=== PATIENT | male | born 1955 ===

== ENCOUNTER 2017-09-28 10:31 | Emergency (ER) | payer OTHER ==
[2017-09-28 10:32] VITALS: BMI 38.9
[2017-09-28 10:45] VITALS: RESP 18; O2SAT 97
[2017-09-28] MEDS ORDERED: Albuterol 0.083% Inhal Sol (2.5 mg/3 mL) UD IH STA (11:31)
[2017-09-28] MEDS ORDERED: Albuterol 0.083% Inhal Sol (2.5 mg/3 mL) UD ONE (11:35)
--- NOTE | 2017-09-28 12:23 | C.PDOC ---
History Of Present Illness 62 yo male come in for evaluation of body aches, nasal congestion, runny nose, dry cough gradually developed for past 2 days. Otherwise, pt denies high fever , chills, headache, visual changes, focal deficits, neck pain, drooling, dysphagia, dyspnea, CP, SOB, palpitation, wheezing, abd. pain, V/D, back pain, UTI sx. Ambulate to ED for evaluation, not in any apparent distress. Time Seen by Provider: 09/28/17 11:24 Chief Complaint (Nursing): Flu-like Symptoms History Per: Patient History/Exam Limitations: no limitations Onset/Duration Of Symptoms: Gradual (2 days) Current Symptoms Are (Timing): Still Present Past Medical History Reviewed: Historical Data, Nursing Documentation, Vital Signs Vital Signs: Last Vital Signs Temp 98.1 F 09/28/17 12:38 Pulse 78 09/28/17 12:38 Resp 18 09/28/17 12:38 BP 129/85 09/28/17 12:38 Pulse Ox 97 09/28/17 12:41 - Medical History PMH: Diabetes, HTN, Hyperlipidemia Surgical History: CABG (x2 (2013 at [facility] [place] - [facility] Procedures CLOSURE SKIN & SUBCUTANEOUS NEC (06/09/15) CORONAR ARTERIOGR-2 CATH (04/23/14) LEFT HEART CARDIAC CATH (04/23/14) LT HEART ANGIOCARDIOGRAM (04/23/14) Family History: States: No Known Family Hx - Social History Hx Tobacco Use: No Hx Alcohol Use: Yes Hx Substance Use: No Review Of Systems Except As Marked, All Systems Reviewed And Found Negative. Constitutional: Positive for: Other ((+) body aches). Negative for: Fever, Chills Eyes: Negative for: Vision Change ENT: Positive for: Nose Discharge (runny nose), Nose Congestion Cardiovascular: Negative for: Chest Pain, Palpitations Respiratory: Positive for: Cough (dry). Negative for: Shortness of Breath, Wheezing Gastrointestinal: Negative for: Vomiting, Abdominal Pain, Diarrhea Musculoskeletal: Negative for: Neck Pain, Back Pain Neurological: Negative for: Headache Physical Exam - Physical Exam Appears: Non-toxic, No Acute Distress Skin: Warm, Dry, No Rash Head: Atraumatic, Normacephalic Eye(s): bilateral: Normal Inspection, PERRL, EOMI Ear(s): Bilateral: Normal Nose: Normal Oral Mucosa: Moist Lips: Normal Appearing Throat: Normal, No Erythema, No Exudate, No Drooling Neck: Normal, Normal ROM, Supple Chest: Symmetrical, No Tenderness Cardiovascular: Rhythm Regular, No Murmur Respiratory: Normal Breath Sounds, No Rales, No Rhonchi, No Stridor, No Wheezing Gastrointestinal/Abdominal: Normal Exam, Soft, No Tenderness, No Guarding, No Rebound Extremity: Normal ROM, No Swelling Neurological/Psych: Oriented x3, Normal Speech, Normal Motor ED Course And Treatment O2 Sat by Pulse Oximetry: 97 (RA) Pulse Ox Interpretation: Normal - Radiology CXR: Interpreted by Me, Viewed By Me CXR Interpretation: Yes: Other ((-) acute inflitrate, COmpare with old study, no new changes.) Progress Note: On re-eval, pt is afebrile, hemodynamicaly stable. Non-toxic. Tolerate Po well in ED. PUlsEOx 97% RA. Neck: Supple, (-) JVD, (-) carotid bruits B/L. ENT: No acute findings. uvula midline, no edema. Lungs: CTA B/L, BS equal B/L. CVS: (+)S1S2, reg. Abd: benign. Neurologicaly intact. CXR review and appears imilar to previous study, no acute consolidation. Influenza A (-). Pt advised on course of ds. ref. to F/u with PMD In 2-3 days for re- eval. return if any new changes. Medical Decision Making Medical Decision Making: PLAN: * CXR * Influenza * Albuterol IH * Zithromax PO Disposition Counseled Patient/Family Regarding: Studies Performed, Diagnosis, Need For Followup, Rx Given - Disposition Referrals: Shelly Ricks MD [Medical Doctor] - Disposition: HOME/ ROUTINE Disposition Time: 12:25 Condition: STABLE Additional Instructions: ENCOURAGE FLUIDS TAKE MEDICATION PRESCRIBED FOLLOW UP WITH PMD IN 2-3 DAYS FOR RE-EVALUATION. RETURN TO ED IF ANY WORSENING OR NEW CHANGES. 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 - Scribe Statement The provider has reviewed the documentation as recorded by the Scribe Stella Mera All medical record entries made by the Leroyibjasmin were at my direction and personally dictated by me. I have reviewed the chart and agree that the record accurately reflects my personal performance of the history, physical exam, medical decision making, and the department course for this patient. I have also personally directed, reviewed, and agree with the discharge instructions and disposition.
--- NOTE | 2017-09-28 12:34 | RAD ---
HISTORY: Cough COMPARISON: Chest x-ray performed 04/23/14 TECHNIQUE: Chest PA and lateral FINDINGS: Examination limited by habitus. LUNGS: Mild pulmonary venous congestion. No focal consolidation. Mild biapical pleural thickening. Please note that chest x-ray has limited sensitivity for the detection of pulmonary masses. PLEURA: No significant pleural effusion identified. No definite pneumothorax . CARDIOVASCULAR: Median sternotomy wires with evidence of CABG. Heart size appears top normal. OSSEOUS STRUCTURES: Degenerative changes of the spine. VISUALIZED UPPER ABDOMEN: Unremarkable. OTHER FINDINGS: None. IMPRESSION: Mild pulmonary venous congestion. Mild biapical pleural thickening. Median sternotomy wires with evidence of CABG.
[2017-09-28 12:44] VITALS: BP 129/85; PULSE 78; TEMP 98.1
== END 2017-09-28 12:45 | disposition home or self-care (01) ==
LOC: C.ER 10:31
DX: J40 Bronchitis, not specified as acute or chronic (principal)

== ENCOUNTER 2018-08-28 20:34 | Emergency (ER) | payer OTHER ==
[2018-08-28 20:35] VITALS: BMI 38.9
[2018-08-28] MEDS ORDERED: Sodium Chloride 0.9% 1,000 ML IV ONE (21:02)
--- NOTE | 2018-08-28 21:07 | C.PDOC ---
History Of Present Illness 63 year old male presents to the ED for evaluation after he sustained a fall yesterday. Patient states he accidentally missed a step, fell and hit the back of his head and hurt his left shoulder. Patient states he lost consciousness, but is unsure of the duration. Today, patient reports he has a headache and feels dizziness. He denies any further episode of syncope, nausea, vomiting, extremity numbness/weakness. Time Seen by Provider: 08/28/18 20:57 Chief Complaint (Nursing): Abnormal Skin Integrity History Per: Patient History/Exam Limitations: no limitations Onset/Duration Of Symptoms: Hrs Current Symptoms Are (Timing): Still Present Location Of Injury: Left: Shoulder, Posterior: Head Quality Of Symptoms: Painful Additional History Per: Patient Past Medical History Reviewed: Historical Data, Nursing Documentation, Vital Signs Vital Signs: Last Vital Signs Temp 97.5 F L 08/28/18 20:46 Pulse 80 08/28/18 20:46 Resp 20 08/28/18 20:46 BP 164/92 H 08/28/18 20:46 Pulse Ox 96 08/28/18 20:46 - Medical History PMH: Diabetes, HTN, Hyperlipidemia Denies: Chronic Kidney Disease Surgical History: CABG (x2 (2013 at [facility] [place] - [facility] Procedures CLOSURE SKIN & SUBCUTANEOUS NEC (06/09/15) CORONAR ARTERIOGR-2 CATH (04/23/14) LEFT HEART CARDIAC CATH (04/23/14) LT HEART ANGIOCARDIOGRAM (04/23/14) Family History: States: Unknown Family Hx - Social History Hx Tobacco Use: No Hx Alcohol Use: Yes Hx Substance Use: No - Immunization History Hx Tetanus Toxoid Vaccination: No Hx Influenza Vaccination: No Hx Pneumococcal Vaccination: No Review Of Systems Gastrointestinal: Negative for: Nausea, Vomiting Musculoskeletal: Positive for: Shoulder Pain (left ) Skin: Positive for: Other (head injury ) Neurological: Positive for: Other (LOC ). Negative for: Weakness, Numbness Physical Exam - Physical Exam Appears: Non-toxic, No Acute Distress Skin: Normal Color, Warm, Dry Head: Abrasion (to occipital region of scalp ), No Other (active bleeding) Eye(s): bilateral: Normal Inspection Oral Mucosa: Moist Neck: Normal ROM, No Midline Cervical Tenderness, No Paracervical Tenderness, Supple Chest: Symmetrical, No Deformity, No Tenderness Cardiovascular: Rhythm Regular, No Murmur Respiratory: Normal Breath Sounds, No Rales, No Rhonchi, No Wheezing Gastrointestinal/Abdominal: Soft, No Tenderness, No Guarding, No Rebound Extremity: No Normal ROM (limited in left upper extremity secondary to pain ), Tenderness (to left shoulder ), Capillary Refill (less than 2 seconds), No Deformity, No Swelling, Other ( right upper extremity and bilateral lower extremities are unremarkable. no ecchymosis or laceration to extremities ) Neurological/Psych: Oriented x3, Normal Speech, Normal Cognition ED Course And Treatment ECG: Interpreted By Me, Viewed By Me ECG Rhythm: Sinus Rhythm Interpretation Of ECG: Normal sinus rhythm at rate 81bpm. Right axis deviation. Normal QRS, normal intervals, no ST elevations. Rate From EC O2 Sat by Pulse Oximetry: 96 (on RA) Pulse Ox Interpretation: Normal - Other Rad left shoulder XR X-Ray: Interpreted by Me Interpretation: no acute fracture or dislocation - CT Scan/US CT Head Other Rad Studies (CT/US): Read By Radiologist, Radiology Report Reviewed CT/US Interpretation: EXAM: CT Head without Intravenous Contrast. CLINICAL HISTORY: Fall/ laceration back of head. TECHNIQUE: Axial computed tomography images of the head/brain without intravenous contrast. 1148 mGy-cm. COMPARISON: None provided. FINDINGS: BRAIN. No acute intraparenchymal hemorrhage. No mass lesion. No CT evidence for acute territorial infarct. No midline shift or extra-axial collections. VENTRICLES: No hydrocephalus. ORBITS: The orbits are unremarkable. SINUSES AND MASTOIDS: The paranasal sinuses and mastoid air cells are clear. BONES: No fracture. SOFT TISSUES: Scalp contusion high left parietal lobe. IMPRESSION: 1. Scalp contusion high left parietal lobe. 2. No acute intracranial pathology. Medical Decision Making Medical Decision Making: Impression: 63 year old male with head injury and left shoulder pain s/o fall Plan: * bloodwork * CT Head * Left shoulder XR * EKG * reassess and disposition Progress: Bloodwork, CT Head, Left shoulder XR, and EKG ordered and reviewed. IV Fluids given. 21:11 EKG shows normal sinus rhythm at rate 81bpm. Right axis deviation. Normal QRS, normal intervals, no ST elevations. Patient in no distress throughout ED course. At time of discharge, ambulates without difficulty. Concussion instructions given. Scalp laceration is over 24 hours old is already starting to heal, no repair necessary. Disposition - Disposition Disposition: HOME/ ROUTINE Disposition Time: 23:08 Condition: STABLE Additional Instructions: SON FAJARDO, thank you for letting us take care of you today. Your provider was Nuvia Dawkins MD and you were treated for FALL/LACERATION ON HEAD. The emergency medical care you received today was directed at your acute symptoms. If you were prescribed any medication, please fill it and take as directed. It may take several days for your symptoms to resolve. Return to the Emergency Department if your symptoms worsen, do not improve, or if you have any other problems. Please contact your doctor or call one of the physicians/clinics you have been referred to that are listed on the Patient Visit Information form that is included in your discharge packet. Bring any paperwork you were given at discharge with you along with any medications you are taking to your follow up visit. Our treatment cannot replace ongoing medical care by a primary care provider outside of the emergency department. Thank you for allowing the [facility] team to be part of your care today. If you had an X-Ray or CT scan: A Radiologist will review the ED reading if any change in treatment is needed we will contact you. If you had a blood, urine, or wound culture: It will take several days for the results, if any change in treatment is needed we will contact you. If you had an STI test: It will take 48 hours for the results. Please call after 1 week if you have not heard back. Instructions: Concussion, Adult (DC) Forms: [employer] (Setswana) - Clinical Impression Clinical Impression: Closed head injury, Scalp laceration - Scribe Statement The provider has reviewed the documentation as recorded by the Scribe (Rachel Alarcon) Provider Attestation: All medical record entries made by the Scribe were at my direction and personally dictated by me. I have reviewed the chart and agree that the record accurately reflects my personal performance of the history, physical exam, medical decision making, and the department course for this patient. I have also personally directed, reviewed, and agree with the discharge instructions and disposition.
[2018-08-28 23:13] VITALS: BP 139/76; PULSE 79; RESP 18; TEMP 98
[2018-08-29 05:26] VITALS: O2SAT 96
--- NOTE | 2018-08-29 08:59 | RAD ---
Date of service: 08/28/2018 PROCEDURE: Radiographs of the Left Shoulder HISTORY: fall COMPARISON: Comparison is made with the previous same-day exam FINDINGS: BONES: No radiographic evidence of acute fracture JOINTS: No evidence of dislocation. Moderate osteoarthritic degenerative changes. SOFT TISSUES: Normal. OTHER FINDINGS: None. IMPRESSION: No evidence of dislocation or fracture
--- NOTE | 2018-08-29 09:44 | CT ---
Date of service: 08/28/2018 PROCEDURE: CT HEAD WITHOUT CONTRAST. HISTORY: fall COMPARISON: Comparison is made with 07/20/2017 TECHNIQUE: Axial computed tomography images were obtained through the head/brain without intravenous contrast. Radiation dose: Total exam DLP = 1148.72 mGy-cm. This CT exam was performed using one or more of the following dose reduction techniques: Automated exposure control, adjustment of the mA and/or kV according to patient size, and/or use of iterative reconstruction technique. FINDINGS: HEMORRHAGE: No intracranial hemorrhage. BRAIN: No mass effect or edema. No atrophy or chronic microvascular ischemic changes. VENTRICLES: Unremarkable. No hydrocephalus. CALVARIUM: Unremarkable. PARANASAL SINUSES: Unremarkable as visualized. No significant inflammatory changes. MASTOID AIR CELLS: Unremarkable as visualized. No inflammatory changes. OTHER FINDINGS: There is soft tissue swelling in the left posterior scalp. IMPRESSION: No evidence of acute intracranial hemorrhage intracranial collection mass effect or midline shift. Preliminary report was submitted by [facility] Radiology contains concordant findings.
--- NOTE | 2018-08-30 17:41 | CARD ---
APPROVED REPORT Date of service: 08/28/2018 EKG Measurement Heart [id number] <Conclusion> Normal sinus rhythm Rightward axis Borderline ECG
== END 2018-08-28 23:13 | disposition home or self-care (01) ==
LOC: C.ER 20:34
DX: S01.01XA Laceration without foreign body of scalp, initial encounter (principal); W10.9XXA Fall (on) (from) unspecified stairs and steps, initial encounter; I10 Essential (primary) hypertension; E78.5 Hyperlipidemia, unspecified; E11.9 Type 2 diabetes mellitus without complications; Z95.1 Presence of aortocoronary bypass graft; F17.210 Nicotine dependence, cigarettes, uncomplicated
CPT/HCPCS: 70450; 73030; 82948; 93005; 99284; J7030

== ENCOUNTER 2018-09-27 08:53 | Outpatient (CLI) | payer SELFPAY | END 2018-09-27 08:54 | disposition home or self-care (01) | LOC: C.LAB 08:53 | DX: R42 Dizziness and giddiness (principal) ==